=== PATIENT | male | born 1925 | race Caucasian/White ===

== ENCOUNTER 2016-11-06 00:45 | Emergency (ER) | payer BC, MEDICARE ==
[2016-11-06 01:10] LABS: Hematocrit 33.3 % (42.0-52.0); Hemoglobin 11.1 gm/dL (13.5-18.0); Mean Cell Volume 95.1 fl (78-100); Mean Corpuscular Hemoglobin 31.7 pg (27-31); Mean Corpuscular Hgb Conc 33.3 g/dl (32-36); Mean Platelet Volume 9.8 fl (6.0-9.5); Neutrophil # 4.9 K/mm3 (1.3-6.0); Neutrophil % 66.8 % (42-75.0); Platelet Count 198 K/mm3 (150-450); Red Cell Distribution Width 16.1 % (11.5-14.0); White Blood Count 7.3 K/mm3 (4.0-10.5)
--- NOTE | 2016-11-06 01:16 | ERNOTE ---
Dyspnea - General Presenting Symptoms: shortness of breath Source: patient Exam Limitations: no limitations - Immun/Allergies/Home Medications Allergies/Adverse Reactions: Allergies aspirin Adverse Reaction (Verified 11/06/16 01:00) Home Medications: HOME MEDICATIONS Albuterol Sulfate [Proventil Hfa] 2 inh IH Q4H PRN 09/01/12 [Last Taken Unknown] Fluticasone Propionate [Flonase] 2 inh NS DAILY 09/01/12 [Last Taken Unknown] Fluticasone Propionate [Flovent Hfa] 1 inh IH BID 09/01/12 [Last Taken Unknown] Ipratropium/Albuterol Sulfate [Duoneb 0.5 mg-3 mg/3 ml Soln] 3 ml IH PRN PRN 01/10 [Last Taken Unknown] - History of Present Illness Narrative: Pt got up around 22:00 last night to use the bathroom and was very short of breath. He states he almost fell three times because he was so short of breath. He called EMS and they placed him on oxygen. He states he feels normal at this time Severity: moderate Treatment [employer]: paramedics, oxygen Initiating event: Reports: none Frequency of episodes: Reports: no prior episodes Modifying Factors - (Improves): Reports: oxygen Modifying Factors (Worsens): Reports: activity Associated Symptoms-Dyspnea: Reports: lightheadedness. Denies: chest pain/ discomfort, cough Review of Systems - Review of Systems Constitutional: Absent: recent illness, fever, chills EYE: Present: no symptoms reported ENT: Present: no symptoms reported Respiratory: Present: See HPI. Absent: cough Cardiology: Absent: chest pain, palpitations, syncope, edema Gastrointestinal/Abdominal: Absent: nausea Genitourinary: Present: no symptoms reported Musculoskeletal: Present: no symptoms reported Skin: Present: no symptoms reported Neurological: Present: no symptoms reported Endocrine: Present: no symptoms reported Hematologic/Lymphatic: Present: no symptoms reported Psych: Present: no symptoms reported - Patient's Past Medical History Patient History - Medical: No pertinent hx Patient History - Cardiac/Respiratory: Arrhythmias, COPD, Other Patient History - Surgical Procedures: Pacemaker - Social History Does anyone smoke in the home?: No Physical Exam - Physical Exam General Appearance: Present: wd/wn, alert, no apparent distress Eye Exam: Normal inspection: bilateral Ears, Nose, Throat: Present: hearing decreased - without hearing aids, adequate with them in Neck: Present: normal inspection, nontender Respiratory: Present: no respiratory distress, normal breath sounds, no accessory muscle use, lungs clear Cardiovascular/Chest: Present: systolic murmur - 3/6, other - occasional pauses , Extremity Exam: Present: normal inspection, non-tender, no edema Neurological Exam: Present: alert, oriented, normal mood/affect, no motor/ sensory deficits Skin Exam: Present: normal color, warm/dry Lymphatic Exam: Present: no adenopathy ED Progress - Results and Orders Patient's Lab Results:: I have reviewed the patient's lab results. Results and Orders: Laboratory Tests 11/06/16 11/06/16 01:05 01:05 WBC 7.3 Hgb 11.1 L Hct 33.3 L Plt Count 198 Sodium 143 H Potassium 4.7 H Chloride 106 Carbon Dioxide 28.4 BUN 33 H Creatinine 1.07 Est GFR (Non-Af Amer) 69 Random Glucose 107 Calcium 8.8 Calcium Adj for Albumin 9.2 Total Bilirubin 0.4 AST 23 ALT 25 Alkaline Phosphatase 90 Total Protein 7.1 Albumin 3.1 L - EKG EKG: other EKG read: Interp. by me EKG Comments: Paced rhythm with one pacer spike not conducted, otherwise well conducted regular rhythm - X-Ray X-Ray #1 X-Ray: chest Interpretation: Interp. by me X-ray Comments: changes of COPD, no infiltrate, effusion or pneumothorax. Cardiac pacemaker unchanged in appearance - Progress/Reassessment Progress:: Improved Progress Note-Subjective: 11/06/16 03:00 discussed normal labs and benign telemetry with the patient and family. discussed the fact that we couldn't rule out a pacemaker failure with his shortness of breath and weakness earlier tonight. Offered to keep the patient in the ED on the monitor until around 05:00 and if we see nothing concerning on the monitor then the family can take him by private car to [facility] for his pacemaker change. Family is more comfortable with that and pt reluctantly agrees. 11/06/16 04:46 Pt has had no significant arrhythmias. Pacemaker occasionally has to double fire to get capture but never misses or has a pause. Will get discharge ready for patients family to take him by private car Departure Clinical Impression: Shortness of breath Dysrhythmia Qualifiers: Arrhythmia type: unspecified cardiac arrhythmia Qualified Code(s): I49.9 - Cardiac arrhythmia, unspecified - Departure Disposition: Home Follow Up Needed Condition: Good Additional Instructions: keep your appointment for pacemaker change as scheduled. Referrals: Talat Alexis MD [Primary Care Provider] -
[2016-11-06 01:26] LABS: Albumin * 3.1 gm/dl (3.4-5.0); Anion Gap 13.3 mmol/L (6.8-13.8); BUN/Creatinine Ratio 30.8 (9.0-21.6); Bilirubin, Total 0.4 mg/dL (0.0-1.1); Ca. Corrected For Albumin 9.2 mg/dL (8.4-10.2); Calcium * 8.8 mg/dL (7.9-10.9); Carbon Dioxide 28.4 mmol/L (24-32.6); Potassium 4.7 mmol/L (3.4-4.6); Total Protein 7.1 gm/dL (6.2-8.2)
[2016-11-06 05:01] VITALS: BP 138/51
== END 2016-11-06 05:11 | disposition home or self-care (01) ==
LOC: ER 00:45
DX: I49.9 Cardiac arrhythmia, unspecified (principal); R06.02 Shortness of breath; Z95.0 Presence of cardiac pacemaker; J44.9 Chronic obstructive pulmonary disease, unspecified

== ENCOUNTER 2016-11-13 08:01 | Emergency (ER) | payer BC, MEDICARE ==
[2016-11-13 08:25] VITALS: BP 122/79
--- NOTE | 2016-11-13 08:41 | ERNOTE ---
Trauma/Assault HPI - Narrative Date of Service: 11/13/16 - General Stated Complaint: PT FELL AT WORK Time Seen by Provider: 11/13/16 08:17 Source: patient Exam Limitations: no limitations - Immun/Allergies/Home Medications Immunizations: IMMUNIZATION HX Immunizations Up to Date Yes History of Influenza Vaccine Yes Hx Pneumococcal Vaccination Yes Allergies/Adverse Reactions: Allergies aspirin Adverse Reaction (Verified 11/13/16 08:09) Home Medications: HOME MEDICATIONS Albuterol Sulfate [Proventil Hfa] 2 inh IH Q4H PRN 09/01/12 [Last Taken Unknown] Fluticasone Propionate [Flonase] 2 inh NS DAILY 09/01/12 [Last Taken Unknown] Fluticasone Propionate [Flovent Hfa] 1 inh IH BID 09/01/12 [Last Taken Unknown] Ipratropium/Albuterol Sulfate [Duoneb 0.5 mg-3 mg/3 ml Soln] 3 ml IH PRN PRN 01/10 [Last Taken Unknown] - History of Present Illness Date (Duration): 11/13/16 Narrative: Patient was at home and slipped falling more towards his left side, denies hitting his head denies any loss of consciousness denies any injury anywhere. He does have skin tears on his close to his left elbow as well as lateral aspect of the wrist and fourth finger but moving all joints well denies of any pain. Denies any other issue at this time, Does have a slight abrasion to the left hinduism area. Location Occurred: Reports: home Pain Location: Reports: upper extremity - left upper arm medial to the elbow he' s got a 9 cm skin tear, left fourth finger at the MCP joint another skin tear measuring 2 cm, next lateral aspect of the wrist flap skin tear measuring 2 cm moving all joints well. Method of Injury: Reports: fall Loss of Consciousness: Reports: no loss of consciousness, remembers the event, remembers coming to hospital. Denies: dazed Associated Symptoms - Trauma: Denies: headache, confusion, dizziness, lightheadedness, seizures, slurred speech, trouble walking, neck pain, chest pain, shortness of breath, abdominal pain Review of Systems - Review of Systems Constitutional: Absent: fever, chills, diaphoresis, weakness EYE: Absent: blurred vision, double vision Respiratory: Absent: shortness of breath, cough Cardiology: Absent: chest pain, palpitations Neurological: Absent: headache, dizziness/light-headedness All Other Systems: All systems neg except as marked - Patient's Past Medical History Patient History - Medical: No pertinent hx Patient History - Cardiac/Respiratory: Asthma, Other Patient History - Cancer: No Hx of Cancer Patient History - Surgical Procedures: Pacemaker Patient History - Other: None - Social History Living Situations: home Does anyone smoke in the home?: No Alcohol Use: none Drug Use: none - Immunizations Immunizations Up to Date: Yes Hx Pneumococcal Vaccination: Yes History of Influenza Vaccine: Yes Physical Exam - Physical Exam General Appearance: Present: wd/wn, alert, no apparent distress Eye Exam: PERRL: bilateral, EOMI: bilateral Ears, Nose, Throat: Present: normal ENT inspection, normal pharynx Neck: Present: normal inspection, nontender, supple, full range of motion Respiratory: Present: no respiratory distress, normal breath sounds, no accessory muscle use, chest nontender, lungs clear Cardiovascular/Chest: Present: regular rate, rhythm, no murmur, normal peripheral pulses Gastrointestinal/Abdominal: Present: normal bowel sounds, nontender, nondistended, soft, no organomegaly Back Exam: Present: normal inspection, normal range of motion, no CVA tenderness , no vertebral tenderness Extremity Exam: Present: normal inspection, non-tender, no edema, normal range of motion Neurological Exam: Present: alert, oriented, normal mood/affect, no motor/ sensory deficits Skin Exam: Present: normal color, warm/dry, other - skin tear just medial to the elbow measuring roughly 6 cm, skin tear to the lateral aspect of wrist left side measuring 2 cm appears more to be a flap, skin tear to the fourth finger at the MCP 2 cm. Moving all joints well without any pain or tenderness. Distal neurovascular intact. Has a slight abrasion to the left temporal area. ED Progress - Vital Signs Vital Signs: Vital Signs 11/13/16 11/13/16 08:05 08:24 Temperature 35.7 C L Pulse Rate 71 70 Respiratory 12 12 Rate Blood Pressure 122/70 122/79 O2 Sat by Pulse 94 97 Oximetry - Progress/Reassessment Chief Complaint: Fall Procedures Left Upper Elbow Date and Time: 11/13/2016 8:37 am Length of Repair/Wound (cm): 6 Wound's Depth/Shape: superficial Wound Explored: clean Wound Intervention: irrigated w/saline Wound Repaired With: Dermabond Wound Dressing: sterile dressing applied Complications: Pt cecilia procedure well Departure Clinical Impression: Skin tear of elbow without complication Qualifiers: Encounter type: initial encounter Laterality: left Qualified Code(s): S51.012A - Laceration without foreign body of left elbow, initial encounter Skin tear of hand without complication Qualifiers: Encounter type: initial encounter Laterality: left Qualified Code(s): S61.412A - Laceration without foreign body of left hand, initial encounter Tear of skin of left wrist Qualifiers: Encounter type: initial encounter Qualified Code(s): S61.512A - Laceration without foreign body of left wrist, initial encounter - Departure Disposition: Home self-care Condition: Stable Instructions: Tissue Adhesive Wound Care, [id number], Laceration Care, Adult , [id number] Referrals: Talat Alexis MD [Primary Care Provider] -
== END 2016-11-13 08:45 | disposition home or self-care (01) ==
LOC: ER 08:01
PROC: 0HQEXZZ Repair Left Lower Arm Skin, External Approach (ICD-10-PCS; principal; 2016-11-13)
DX: S51.012A Laceration without foreign body of left elbow, initial encounter (principal); S61.412A Laceration without foreign body of left hand, initial encounter; S61.512A Laceration without foreign body of left wrist, initial encounter; S00.91XA Abrasion of unspecified part of head, initial encounter; W01.0XXA Fall on same level from slipping, tripping and stumbling without subsequent striking against object, initial encounter; Y92.009 Unspecified place in unspecified non-institutional (private) residence as the place of occurrence of the external cause; Z95.0 Presence of cardiac pacemaker